=== PATIENT | male | born 1950 | race Two or more races ===

== ENCOUNTER 2018-12-15 05:40 | Day surgery (SDC) | payer OTHER ==
[2018-12-15] MEDS ORDERED: IRR STERIL WATER FOR IRR 1000 ML BOTTLE IR ONE (05:41)
[2018-12-15] MEDS ORDERED: IV NORMAL SALINE 1000 ML BAG IV ONE (05:41)
[2018-12-15] MEDS ORDERED: KETOROLAC 0.5% OPHT DROP 3 ML BOTTLE ONE (06:39)
[2018-12-15] MEDS ORDERED: TROPICAMIDE 1% OPHT DROP 3 ML BOTTLE ONE (06:40)
[2018-12-15] MEDS ORDERED: CIPROFLOXACIN 0.3% OPHT DROP 2.5 ML BOTTLE ONE (06:40)
[2018-12-15] MEDS ORDERED: PHENYLEPHRINE 2.5% OPHT DROP 2 ML BOTTLE ONE (06:40)
[2018-12-15] MEDS ORDERED: CYCLOPENTOLATE 1% OPHT DROP 2 ML BOTTLE ONE (06:40)
[2018-12-15] MEDS ORDERED: BALANCED SALT IRRIG SOLN COMB1 500 ML, EPINEPHRINE-PF 1:1000 0.5 MG IO ONE ×2 (07:00)
[2018-12-15] MEDS ORDERED: MOXIFLOXACIN HCL 3 ML OPHT DROPS ONE (07:21)
[2018-12-15] MEDS ORDERED: LIDOCAINE-MPF 2% 5 ML VIAL ONE (07:21)
[2018-12-15] MEDS ORDERED: BUPIVACAINE PF 0.5% 30 ML VIAL ONE (07:22)
[2018-12-15] MEDS ORDERED: TETRACAINE HCL 0.5% OPHT DROP 2 ML BOTTLE ONE (07:22)
[2018-12-15] MEDS ORDERED: BALANCED SALT IRRIG SOLN COMB2 15 ML IRRIG.SOLN ONE (07:22)
[2018-12-15] MEDS ORDERED: TIMOLOL MALEATE 0.5% OPHT DROP 5 ML BOTTLE ONE (07:22)
[2018-12-15] MEDS ORDERED: NEO/POLYMYX B/DEXAME OPHT OINT 3.5 GM TUBE ONE (07:22)
[2018-12-15] MEDS ORDERED: HYALURONIDASE,OVINE 200 UNITS/ML VIAL ONE (07:23)
[2018-12-15] MEDS ORDERED: HYALURONATE SODIUM 12.8 MG/0.8 ML DISP.SYRIN ONE (07:23)
[2018-12-15] MEDS ORDERED: FENTANYL CITRATE 100 MCG/2 ML AMPUL ONE (07:51)
[2018-12-15] MEDS ORDERED: CARBACHOL OPHT 1.5 ML VIAL IO ONE (08:28)
== END 2018-12-15 10:00 | disposition home or self-care (01) ==
LOC: DS 05:40
PROVIDERS: ATTEND Ophthalmology
DX: H25.89 Other age-related cataract (principal); E11.9 Type 2 diabetes mellitus without complications; I48.91 Unspecified atrial fibrillation; I10 Essential (primary) hypertension; Z96.659 Presence of unspecified artificial knee joint; E66.9 Obesity, unspecified
CPT/HCPCS: 66984; 71045; 82962 ×2; J0171; J3010; J3471; J3490 ×2; J7321; V2632; A4217; A4663; J7030

== ENCOUNTER 2019-01-19 06:10 | Day surgery (SDC) | payer OTHER ==
[2019-01-19] MEDS ORDERED: IV NORMAL SALINE 1000 ML BAG IV ONE (06:11)
[2019-01-19] MEDS ORDERED: CIPROFLOXACIN 0.3% OPHT DROP 2.5 ML BOTTLE ONE (06:31)
[2019-01-19] MEDS ORDERED: KETOROLAC 0.5% OPHT DROP 3 ML BOTTLE ONE (06:31)
[2019-01-19] MEDS ORDERED: CYCLOPENTOLATE 1% OPHT DROP 2 ML BOTTLE ONE (06:32)
[2019-01-19] MEDS ORDERED: TROPICAMIDE 1% OPHT DROP 3 ML BOTTLE ONE (06:32)
[2019-01-19] MEDS ORDERED: PHENYLEPHRINE 2.5% OPHT DROP 2 ML BOTTLE ONE (06:32)
[2019-01-19] MEDS ORDERED: BALANCED SALT IRRIG SOLN COMB1 500 ML, EPINEPHRINE-PF 1:1000 0.5 MG IO ONE ×2 (07:00)
[2019-01-19] MEDS ORDERED: TETRACAINE HCL 0.5% OPHT DROP 2 ML BOTTLE ONE (07:22)
[2019-01-19] MEDS ORDERED: TIMOLOL MALEATE 0.5% OPHT DROP 5 ML BOTTLE ONE (07:22)
[2019-01-19] MEDS ORDERED: LIDOCAINE-MPF 2% 5 ML VIAL ONE (07:22)
[2019-01-19] MEDS ORDERED: MOXIFLOXACIN HCL 3 ML OPHT DROPS ONE (07:22)
[2019-01-19] MEDS ORDERED: NEO/POLYMYX B/DEXAME OPHT OINT 3.5 GM TUBE ONE (07:22)
[2019-01-19] MEDS ORDERED: BALANCED SALT IRRIG SOLN COMB2 15 ML IRRIG.SOLN ONE (07:22)
[2019-01-19] MEDS ORDERED: BUPIVACAINE PF 0.5% 30 ML VIAL ONE (07:23)
[2019-01-19] MEDS ORDERED: ACETYLCHOLINE CHLORIDE 1% OPHT 1 EA KIT ONE (07:23)
[2019-01-19] MEDS ORDERED: HYALURONIDASE,OVINE 200 UNITS/ML VIAL ONE (07:23)
[2019-01-19] MEDS ORDERED: HYALURONATE SODIUM 12.8 MG/0.8 ML DISP.SYRIN ONE (07:23)
[2019-01-19] MEDS ORDERED: FENTANYL CITRATE 100 MCG/2 ML AMPUL ONE (07:57)
== END 2019-01-19 10:40 | disposition home or self-care (01) ==
LOC: DS 06:10
PROVIDERS: ATTEND Ophthalmology
DX: E11.36 Type 2 diabetes mellitus with diabetic cataract (principal); H25.12 Age-related nuclear cataract, left eye; H25.11 Age-related nuclear cataract, right eye; I10 Essential (primary) hypertension; I48.2 Chronic atrial fibrillation; I25.10 Atherosclerotic heart disease of native coronary artery without angina pectoris; E78.5 Hyperlipidemia, unspecified; N40.0 Benign prostatic hyperplasia without lower urinary tract symptoms; M19.90 Unspecified osteoarthritis, unspecified site; E66.9 Obesity, unspecified; D64.9 Anemia, unspecified; F15.90 Other stimulant use, unspecified, uncomplicated; Z79.899 Other long term (current) drug therapy; Z79.84 Long term (current) use of oral hypoglycemic drugs; Z85.46 Personal history of malignant neoplasm of prostate; Z96.651 Presence of right artificial knee joint; Z98.890 Other specified postprocedural states; Z88.8 Allergy status to other drugs, medicaments and biological substances; Z83.3 Family history of diabetes mellitus
CPT/HCPCS: 66984; 82962; J0171; J3010; J3471; J3490 ×2; J7321; V2632; A4663; J7030